=== PATIENT | female | born 1930 | race Caucasian/White ===

== ENCOUNTER 2016-07-13 09:14 | Emergency (ER) | payer MEDICARE, OTHER ==
[~2016-07-13] VITALS: Ht 154.9 cm; Wt 55.3 kg
[2016-07-13 09:42] VITALS: BP 127/55
== END 2016-07-13 11:30 | disposition home or self-care (01) ==
LOC: ER 09:23
DX: M47.896 Other spondylosis, lumbar region (principal); N83.8 Other noninflammatory disorders of ovary, fallopian tube and broad ligament; E78.5 Hyperlipidemia, unspecified; E07.89 Other specified disorders of thyroid; Z88.0 Allergy status to penicillin; Z88.2 Allergy status to sulfonamides
CPT/HCPCS: 72131; 81002

== ENCOUNTER 2017-05-20 08:22 | Emergency (ER) | payer OTHER ==
[~2017-05-20] VITALS: Ht 149.9 cm; Wt 56.7 kg
[2017-05-20 08:27] VITALS: BP 144/58
[2017-05-20 09:11] LABS: Basophils # (auto) 0 uL; Basophils % (auto) 0.5 % (0.0-2.0); Eosinophils # (auto) 0.1 uL; Eosinophils % (auto) 1.9 % (0.0-7.0); Hematocrit 43.4 % (36.0-46.0); Hemoglobin 14.8 g/dL (12.2-16.2); Lymphocytes # (auto) 1.5 uL; Lymphocytes % (auto) 19.7 % (10.0-50.0); Mean Corpuscular Hemoglobin 31.4 pg (28.0-32.0); Mean Corpuscular Volume 92.5 fL (80.0-100.0); Monocytes # (auto) 0.8 uL; Monocytes % (auto) 10.8 % (0.0-12.0); Neutrophils # (auto) 5.1 uL; Neutrophils % (auto) 67.1 % (37.0-80.0); Nucleated Red Blood Cells % 0.1 %; Platelet Count (auto) 162 10^3/uL (140-450); White Blood Cell 7.6 10^3/uL (4.4-10.8)
[2017-05-20 09:20] LABS: Urine Bacteria NONE SEEN /hpf (None Seen); Urine Blood TRACE /uL (Negative); Urine Mucus FEW (None Seen); Urine Specific Gravity 1.025 (1.001-1.035); Urine WBC 3 /hpf (0 - 5)
[2017-05-20 09:32] LABS: Alanine Aminotransferase 26 U/L (13-56); Albumin 3.3 g/dL (3.4-5.0); Anion Gap 6 (5-15); Blood Urea Nitrogen 13 mg/dL (7-18); Calcium 8.8 mg/dL (8.5-10.1); Carbon Dioxide 24 mmol/L (21-32); Chloride 108 mmol/L (98-107); GFR African American 149 mL/min; GFR Non-African American 123 mL/min; Glucose 91 mg/dL (74-106); Magnesium 2.4 mg/dL (1.6-2.6); Potassium 4.6 mmol/L (3.5-5.1); Sodium 138 mmol/L (136-145)
[2017-05-20 09:36] LABS: Alkaline Phosphatase 84 U/L (45-117); Bilirubin, Total 0.5 mg/dL (0.2-1.0)
[2017-05-20 10:17] LABS: Aspartate Aminotransferase 30 U/L (15-37)
== END 2017-05-20 11:17 | disposition left against medical advice (07) ==
LOC: ER 08:22
DX: M54.9 Dorsalgia, unspecified (principal); Z53.21 Procedure and treatment not carried out due to patient leaving prior to being seen by health care provider; W18.39XA Other fall on same level, initial encounter; Y93.9 Activity, unspecified; Y92.89 Other specified places as the place of occurrence of the external cause; Y99.8 Other external cause status
CPT/HCPCS: 36415; 72100; 80053; 81001; 83735; 84484; 85025; 93005